=== PATIENT | female | born 1970 | race Caucasian/White ===

== ENCOUNTER 2020-01-23 18:38 | Emergency (ER) | payer SELFPAY ==
[~2020-01-23] VITALS: Ht 157.5 cm; Wt 122.7 kg
[2020-01-23 19:28] VITALS: Ht 157.5 cm; Wt 122.7 kg
[2020-01-23] MEDS ORDERED: GLUCOPHAGE500 MG PO (19:29)
== END 2020-01-23 20:16 | disposition home or self-care (01) ==
LOC: D.ER 18:38
DX: S61.412A Laceration without foreign body of left hand, initial encounter (principal); W26.0XXA Contact with knife, initial encounter; Y93.9 Activity, unspecified; Y92.9 Unspecified place or not applicable